=== PATIENT | female | born 2000 | race Caucasian/White ===

== ENCOUNTER 2022-01-18 02:40 | Emergency (ER) | payer BC ==
[~2022-01-18] VITALS: Ht 175.3 cm; Wt 72.0 kg
[2022-01-18 02:47] VITALS: BP 131/72
== END 2022-01-18 02:56 | disposition left against medical advice (07) ==
LOC: ER 02:40
DX: Z53.21 Procedure and treatment not carried out due to patient leaving prior to being seen by health care provider (principal)